=== PATIENT | female | born 1980 | race Two or more races ===

== ENCOUNTER 2025-02-20 01:27 | Emergency (ER) | payer OTHER ==
[~2025-02-20] VITALS: Ht 167.6 cm; Wt 72.6 kg
[2025-02-20] MEDS ORDERED: ACETAMINOPHEN 500 MG GEL..CAP PO STA (03:01)
[2025-02-20] MEDS ORDERED: GUAIFENESIN 200 MG/10 ML BLIST.PACK PO STA (03:01)
[2025-02-20] MEDS ORDERED: FAMOTIDINE/PF 20 MG/2 ML VIAL IV STA (03:01)
[2025-02-20] MEDS ORDERED: DEXAMETHASONE SODIUM PHOSPHATE 4 MG/ML VIAL IM STA (03:01)
[2025-02-20] MEDS ORDERED: ONDANSETRON HCL 2 MG/ML VIAL IV STA (03:02)
[2025-02-20] MEDS ORDERED: FAMOTIDINE/PF 20 MG/2 ML VIAL ONE (03:38)
[2025-02-20] MEDS ORDERED: ONDANSETRON HCL 2 MG/ML VIAL ONE (03:38)
[2025-02-20] MEDS ORDERED: DEXAMETHASONE SODIUM PHOSPHATE 4 MG/ML VIAL ONE (03:38)
[2025-02-20] MEDS ORDERED: ACETAMINOPHEN 500 MG GEL..CAP PO ONE (03:38)
[2025-02-20 04:26] LABS: BASO % 0.4 % (0.1-1.2); EOS # 0.14 (0.04-0.54); EOS % 1.8 % (0.7-7.0); LYMPH # 1.74 (1.18-3.74); LYMPH % 22.8 % (19.3-53.1); MEAN PLATELET VOLUME 10.50 fl (9.4-12.4); MONO # 0.54 (0.24-0.82); MONO % 7.1 % (4.7-12.5); NEUT # 5.16 (1.56-6.13); NEUT % 67.5 % (34.0-71.1); RED CELL DISTRIBUTION WIDTH 13.0 % (11.6-14.4)
[2025-02-20 04:36] LABS: BUN CREA RATIO 19.0 (7.0-25.0); CREATININE SERUM 0.7 mg/dL (0.55-1.02); GFR 90.08; GLUCOSE FASTING 119.0 mg/dL (65-100); OSMOLALITY SERUM 283.0 MOSM/KG (275-295)
[2025-02-20 05:12] LABS: COVID-19 AG NEGATIVE (NEGATIVE)
[2025-02-20] MEDS ORDERED: ALLER-TEC10 MG PO (05:54)
[2025-02-20] MEDS ORDERED: ZITHROMAX500 MG PO (05:54)
[2025-02-20] MEDS ORDERED: PEPCID AC20 MG PO (05:54)
[2025-02-20] MEDS ORDERED: MUCINEX DM ER1 EAC1 PO (05:54)
[2025-02-20] MEDS ORDERED: ACETAMINOPHEN500 M2 PO (05:54)
== END 2025-02-20 06:01 | disposition home or self-care (01) ==
LOC: ER 01:28
PROVIDERS: General Practice
DX: J06.9 Acute upper respiratory infection, unspecified (principal); B34.9 Viral infection, unspecified; Z20.822 Contact with and (suspected) exposure to COVID-19